=== PATIENT | male | born 1970 | race Hispanic/Latino ===

== ENCOUNTER 2018-04-29 00:03 | Emergency (ER) | payer BC ==
[2018-04-29] MEDS ORDERED: Ketorolac Tromethamine 30 MG/ML VIAL ONE (01:12)
--- NOTE | 2018-04-29 07:45 | RAD ---
THREE VIEWS LEFT WRIST: HISTORY: Fall with left wrist pain. FINDINGS: AP, lateral, and oblique views left wrist are obtained. Three views left wrist demonstrate a comminuted fracture in the distal left radius with posterior ang ulation. There is also a fracture through the ulnar styloid. IMPRESSION: Comminuted distal left radial fracture and ulnar styloid fracture. POS: [facility]
== END 2018-04-29 01:34 | disposition home or self-care (01) ==
LOC: ERS 00:03
DX: S52.502A Unspecified fracture of the lower end of left radius, initial encounter for closed fracture (principal); S52.612A Displaced fracture of left ulna styloid process, initial encounter for closed fracture; Z79.899 Other long term (current) drug therapy; W01.0XXA Fall on same level from slipping, tripping and stumbling without subsequent striking against object, initial encounter
CPT/HCPCS: 29125; 96372; J1885

== ENCOUNTER 2018-05-07 13:34 | Outpatient (CLI) | payer BC ==
[2018-05-07 15:02] LABS: Hemoglobin 15.1 g/dL (14.0-18.0); Mean Corpuscular HGB CONC 35.2 g/dL (32.0-36.0); Mean Corpuscular Hemoglobin 31.4 pg (27.0-31.0); Mean Corpuscular Volume 89.2 fl (80.0-94.0); Mean Platelet Volume 7.5 fL (7.4-10.4); Platelet Count 268 thou/uL (130-400); RBC Distribution Width 11.7 % (11.5-14.5); White Blood Cell (WBC) Count 7.3 thou/uL (4.8-10.8)
== END 2018-05-07 13:35 | disposition home or self-care (01) ==
LOC: LABBT 13:34
PROVIDERS: ATTEND Orthopaedic Surgery
DX: Z01.812 Encounter for preprocedural laboratory examination (principal)
CPT/HCPCS: 85027

== ENCOUNTER → 2018-05-09 | Day surgery (SDC) | payer BC ==
[2018-05-07 14:05] VITALS: BMI 25.0
[~2018-05-09] MED LIST: Bupivacaine HCl 0.5%/Epinephrine 1:200,000/PF 30 ml Vial ONE; CEFAZOLIN/Water 2 GM/20 ML SYRINGE ONE; Dexamethasone 20 MG/5 ML VIAL ONE; Fentanyl 100 MCG/2 ML VIAL ONE; HYDROcodone/Acetaminophen 5/325 mg Tablet ONE; HYDROmorphone 0.5 MG/0.5 ML SYRINGE ONE; Ketorolac Tromethamine 30 MG/ML VIAL ONE; Lidocaine 1% PF 5 ML VIAL ONE; Midazolam HCl 2 mg/2 ml Vial ONE; Neomycin-Polymyxin 1 ML AMP ONE; Ondansetron HCl/PF 4 MG/2 ML Vial ONE; PROPOFOL 200 MG/20 ML VIAL ONE
--- NOTE | 2018-05-09 12:16 | OP ---
DATE OF OPERATION: 05/09/2018 PREOPERATIVE DIAGNOSIS: Comminuted displaced intraarticular fracture of the left distal radius. POSTOPERATIVE DIAGNOSIS: Comminuted displaced intraarticular fracture of the left distal radius. PROCEDURE PERFORMED: Open reduction internal fixation of the left distal radius. SURGEON: Moses Cr M.D. ANESTHESIA: General. TECHNIQUE: The patient was given preoperative IV antibiotics, taken to the operating room, placed in the supine position. Satisfactory general anesthesia was performed. The left upper extremity was s terilely prepped and draped in usual fashion. After exsanguination, the tourniquet was raised to 250 mmHg. A longitudinal incision was made over the volar aspect of the wrist over the flexor carpi rad ialis. Blunt dissection was made, flexure carpi radialis was retracted ulnarly. The flexor pollicis longus was retracted radially. A pronator quadratus was periosteally elevated. The intraarticular fracture was noted to be dorsally displaced. Manipulation was performed. The fracture was reduced a nd then internally fixed with a 2 column [employer] 3-hole volar locking plate. Initially, a 2.7 cortic al screw was placed into the distal shaft, placing the plate in good position while the fracture was held reduced, 6 of the 2.4 locking screws were placed distally and then 2 more 2.4 locking screws wer e placed in the shaft. This was all performed under fluoroscopic visualization using the C-arm. Thi s showed excellent reduction of the fractures and proper placement of the plate and screws. The woun d was then copiously irrigated with antibiotic solution and closed using 2-0 Vicryl for the fat and s ubcutaneous tissue, and the skin was closed with 3-0 Rapide. The wound was then infiltrated with 0.5 % Marcaine with epinephrine. Sterile dressing was applied. Tourniquet was released. The patient wa s awakened, extubated, and transferred to the recovery room in stable condition. ESTIMATED BLOOD LOSS: None. COMPLICATIONS: None. TOURNIQUET TIME: 44 minutes. DISCHARGE MEDICATIONS: Patient has tramadol at home, which works well for him. He will follow up in the office next week.
--- NOTE | 2018-05-09 13:18 | RAD ---
INTRAOPERATIVE IMAGING OF THE LEFT WRIST: DATE: 05/09/18. HISTORY: Fracture status post ORIF. FINDINGS: Volar screw and plate fixation is seen fixating treating the comminuted intraarticular fracture of th e distal left radius seen on the 04/28/18 examination. There is a mildly displaced fracture at the bas e of the ulnar styloid. IMPRESSION: Intraoperative imaging as above. POS: [facility]
== END ==
LOC: SDC 08:24
PROVIDERS: ATTEND Orthopaedic Surgery
PROC: 0PSJ04Z Reposition Left Radius with Internal Fixation Device, Open Approach (ICD-10-PCS; principal; 2018-05-09)
DX: S52.572A Other intraarticular fracture of lower end of left radius, initial encounter for closed fracture (principal); Z79.899 Other long term (current) drug therapy; Z89.511 Acquired absence of right leg below knee; W19.XXXA Unspecified fall, initial encounter; Y92.008 Other place in unspecified non-institutional (private) residence as the place of occurrence of the external cause
CPT/HCPCS: 76001; 96374; C1713; J0670; J1100; J1170; J1885; J2001; J2250; J2405; J2704; J3010